=== PATIENT | male | born 1955 | race Caucasian/White ===

== ENCOUNTER 2018-03-13 04:33 | Emergency (ER) | payer OTHER ==
[2018-03-13] MEDS ORDERED: Tamsulosin CAP* 0.4 MG PO ONE (05:07)
[2018-03-13] MEDS ORDERED: DOXYcycline CAP(*) 100 MG PO ONE (05:08)
[2018-03-13 05:42] VITALS: BP 132/66
[2018-03-13 05:53] LABS: Urine Appearance Clear; Urine Blood 2+ (Negative); Urine Color Straw; Urine Ketones Negative (Negative); Urine Protein Negative (Negative); Urine Specific Gravity 1.009 (1.010-1.030); Urine Urobilinogen Negative (Negative)
--- NOTE | 2018-03-14 01:26 | ED ---
Yanira Sims Rebecca, scribed for Daniel Marie MD on 03/13/18 at 0505 . GI/ HPI - HPI Summary HPI Summary: Pt is a 62 y/o M who presents to ED c/o inability to urinate with associated flank pain. Symptoms have been present since yesterday. On triage, pain was moderate, ranked 4/10 though resolved by mcgraw catheter placement. Reports increased urinary frequency, as he had to stop multiple times while driving to [place] from [place]. Denies fever, chills, dysuria, shaking. NKDA. PMHx enlarged prostate - sees a urologist regularly though he is not on Flomax. - History of Current Complaint Chief Complaint: EDUrogenitalProblems Time Seen by Provider: 03/13/18 04:46 Stated Complaint: UNABLE TO URINATE Hx Obtained From: Patient Onset/Duration: Started Days Ago - Yesterday, Resolved - with mcgraw actheter placement Severity: Moderate - 4/10 on triage Current Severity: None Pain Intensity: 0 Location of Pain: Flank - REsolved Associated Signs and Symptoms: Positive: Other: - Difficulty urinating, increased urinary frequency. Negative: Fever, Dysuria Aggravating Factor(s): Nothing - Allergy/Home Medications Allergies/Adverse Reactions: Allergies Allergy/AdvReac Type Severity Reaction Status Date / Time No Known Allergies Allergy Verified 03/13/18 04:37 PMH/Surg Hx/FS Hx/Imm Hx Cardiovascular History: Reports: Hx Hypercholesterolemia, Hx Hypertension History: Reports: Other Problems/Disorders - Hx Prostate enlargement Infectious Disease History: No Infectious Disease History: Denies: Traveled Outside the in Last 30 Days - Family History Known Family History: Negative: Diabetes - Social History Alcohol Use: Occasionally Substance Use Type: Reports: None Smoking Status (MU): Never Smoked Tobacco Review of Systems Positive: Other - NEGATIVE: Shaking. Negative: Fever, Chills Positive: frequency, flank pain - resolved, other - Difficulty urinating. Negative: dysuria All Other Systems Reviewed And Are Negative: Yes Physical Exam - Summary Physical Exam Summary: Appearance: Well appearing, no pain distress Skin: warm, dry, reflects adequate perfusion Head/face: normal Eyes: EOMI, ANA PAULA ENT: normal Neck: supple, non-tender Respiratory: CTA, breath sounds present Cardiovascular: RRR, pulses symmetrical Abdomen: non-tender, soft, mcgraw catheter in palce, draining clear urine and bladder scan was just under 700 cc of urine Bowel Sounds: present Musculoskeletal: normal, strength/ROM intact, no LE edema Neuro: normal, sensory motor intact, A&Ox3 Triage Information Reviewed: Yes Vital Signs On Initial Exam: Initial Vitals Temp Pulse Resp BP Pulse Ox 98.1 F 78 20 167/103 100 03/13/18 04:35 03/13/18 04:35 03/13/18 04:35 03/13/18 04:35 03/13/18 04:35 Vital Signs Reviewed: Yes Diagnostics - Vital Signs Vital Signs Temp Pulse Resp BP Pulse Ox 03/13/18 04:35 98.1 F 78 20 167/103 100 - Laboratory Lab Results: Lab Results 03/13/18 Range/Units 05:00 Urine Color Straw Urine Appearance Clear Urine pH 6.0 (5-9) Ur Specific [place] 1.009 L (1.010-1.030) Urine Protein Negative (Negative) Urine Ketones Negative (Negative) Urine Blood 2+ A (Negative) Urine Nitrate Negative (Negative) Urine Bilirubin Negative (Negative) Urine Urobilinogen Negative (Negative) Ur Leukocyte Esterase Negative (Negative) Urine WBC (Auto) Absent (Absent) Urine RBC (Auto) 2+(6-10/hpf) A (Absent) Urine Bacteria Absent (Absent) Urine Glucose Negative (Negative) Lab Statement: Any lab studies that have been ordered have been reviewed, and results considered in the medical decision making process. GIGU Course/Dx - Course Course Of Treatment: Pt with a hx of prostate issues but on no medications. From out of town. Bladder scan confirmed retention -- mcgraw placed with 800cc+ out. Started on flomax and doxy. Will see his urologist on return to [facility] tomorrow. - Diagnoses Provider Diagnoses: Acute urinary retention, Prostatic hypertrophy Discharge - Sign-Out/Discharge Documenting (check all that apply): Discharge - Discharge - Discharge Plan Condition: Improved Disposition: HOME Patient Education Materials: Urinary Retention in Men (ED) Referrals: Non Staff,Doctor [Primary Care Provider] - Additional Instructions: fill prescriptions for flomax and doxycycline (written on paper) Go to an ER with fever, shakes/chills, worse or other problems. See your urologist on return home, catheter will need to be taken out in approximately 7 days. - Billing Disposition and Condition Condition: IMPROVED Disposition: HOME The documentation as recorded by the Yanira washing[place] Rebecca accurately reflects the service I personally performed and the decisions made by me, Daniel Marie MD.
== END 2018-03-13 05:39 | disposition home or self-care (01) ==
LOC: ED 04:33
DX: N40.1 Benign prostatic hyperplasia with lower urinary tract symptoms (principal); R33.8 Other retention of urine; I10 Essential (primary) hypertension; E78.00 Pure hypercholesterolemia, unspecified
CPT/HCPCS: 51702; 81003; 81015; 99282; A9270-GY